=== PATIENT | female | born 1960 | race African-American/Black ===

== ENCOUNTER 2016-09-15 09:21 | Inpatient (IN) | payer MEDICAID ==
[~2016-09-15] VITALS: Ht 170.2 cm; Wt 122.5 kg
[~2016-09-15 09:21] MED LIST: AMLO10TA2 PO; ASPI-991 PO; DOXA1TAB17 PO; Hydralazine Hcl PO; Isosorbide Dinitrate PO; Valsartan PO
--- NOTE | 2016-09-15 09:30 | NUR ---
PT AMBULATED TO BED #6 WITH A SLOW STEADY GAIT. PT'S FAMILY IS WITH PT. PT CHANGED INTO A GOWN AND WAS PLACED ON THE MONITOR. DR. MAXWELL IS AT THE BEDSIDE. PT'S FAMILY IS TRANSLATING FOR DR. MAXWELL.
--- NOTE | 2016-09-15 09:30 | NUR ---
PT IS SWISS SPEAKING.
[2016-09-15] MEDS ORDERED: ASPIRIN 325 MG TABLET ONE (09:46)
--- NOTE | 2016-09-15 09:55 | NUR ---
CXR IN PROGRESS AT THE BEDSIDE.
[2016-09-15 09:59] LABS: BASOPHILS % (AUTO) 0.7 % (0.0-2.0); EOSINOPHILS # (AUTO) 0.1 /CMM (0.0-0.7); EOSINOPHILS % (AUTO) 1.5 % (0.0-6.0); HEMATOCRIT 40 % (33-45); HEMOGLOBIN 12.6 g/dL (11.5-14.8); LYMPHOCYTES # (AUTO) 2.3 /CMM (0.8-4.8); LYMPHOCYTES % (AUTO) 37.5 % (20.0-44.0); MEAN CORPUSCULAR HEMOGLOBIN 26 PG (26.0-33.0); MEAN CORPUSCULAR HGB CONC 32 g/dl (31.0-36.0); MEAN CORPUSCULAR VOLUME 80 fL (82-100); MONOCYTES # (AUTO) 0.3 /CMM (0.1-1.30); MONOCYTES % (AUTO) 4.9 % (2.0-12.0); NEUTROPHILS # (AUTO) 3.3 /CMM (1.8-8.9); NEUTROPHILS % (AUTO) 55.4 % (43.0-81.0); PLATELET COUNT (AUTO) 207 /CMM (150-450); RDW COEFFICIENT OF VARIATION 14.9 (11.5-15.0); RED BLOOD CELL COUNT(AUTO) 4.95 MIL/uL (4.0-5.2)
[2016-09-15] MEDS ORDERED: ASPIRIN 325 MG TABLET PO ONE (10:00)
[2016-09-15] MEDS ORDERED: LISI1TAB11 PO (10:10)
[2016-09-15] MEDS ORDERED: [UNRECOGNIZED DRUG - OTHER] PO (10:10)
[2016-09-15] MEDS ORDERED: HYDR25TA4 PO (10:10)
[2016-09-15] MEDS ORDERED: BISO5TAB2 PO (10:10)
[2016-09-15 10:11] LABS: CALCIUM, SERUM 9.4 mg/dL (8.5-10.1); CREATININE 1.1 mg/dL (0.6-1.3); POTASSIUM 2.9 mmol/L (3.5-5.1)
[2016-09-15 10:19] LABS: INR 1.01 (0.87-1.13); PROTHROMBIN TIME 10.6 SECS (9.5-12.7)
--- NOTE | 2016-09-15 10:20 | NUR ---
320 B 2
[2016-09-15 10:21] LABS: TROPONIN I 0.139 ng/mL (0.00-0.056)
[2016-09-15] MEDS ORDERED: POTASSIUM CHLORIDE 20 MEQ TAB.PRT.SR PO ONE ×2 (10:24→10:30)
[2016-09-15] MEDS ORDERED: NITROGLYCERIN PACKET 1 GM PACKET ONE (10:24)
--- NOTE | 2016-09-15 10:24 | NUR ---
PT APPEARS TO BE RESTING COMFORTABLY WITH NO S/S OF PAIN OR DISTRESS. VSS. PT REC'D 2 WARM BLANKETS.
--- NOTE | 2016-09-15 10:29 | NUR ---
PAGEReuben BRUCE FOR CARDIOOGY CONSULT
[2016-09-15] MEDS ORDERED: NITROGLYCERIN PACKET 1 GM PACKET TD ONE (10:30)
--- NOTE | 2016-09-15 10:30 | NUR ---
PAGED DR RUSH FOR ADMISSION
--- NOTE | 2016-09-15 10:32 | NUR ---
CALLING REPORT TO WILLEM GEORGES
[2016-09-15 12:00] VITALS: BP 137/77
[2016-09-15] MEDS ORDERED: ZOLPIDEM TARTRATE 5 MG TABLET PO PRN (12:00)
[2016-09-15] MEDS ORDERED: Z GUARD REMEDY 2 OZ OINT TP PRN (12:00)
[2016-09-15] MEDS ORDERED: MAGNESIUM HYDROXIDE 30 ML UDC PO PRN (12:00)
[2016-09-15] MEDS ORDERED: MAG HYDROX/AL HYDROX/SIMETH 30 ML UDC PO PRN (12:00)
[2016-09-15] MEDS ORDERED: ACETAMINOPHEN 325 MG TABLET PO PRN (12:00)
[2016-09-15] MEDS ORDERED: ONDANSETRON HCL/PF 4 MG/2 ML VIAL IVP PRN (12:00)
--- NOTE | 2016-09-15 12:10 | NUR ---
FISH BIN TENDER INITIAL NOTES PATIENT IN ROOM RECEIVED FROM ER. NO SOB OR DISTRESS NOTED AT THIS TIME. PATIENT DENIES PAIN. HEART RATE SR 65. PATIENT ORIENTED TO ROOM AND CALL LIGHT WITH THE HELP OF FAMILY FOR TRANSLATION. BED IN A LOW POSITION, CALL LIGHT WITHIN PATIENT REACH. WILL CONTINUE TO MONITOR.
[2016-09-15] MEDS: HYDROCODONE/APAP 5/325MG 1 EACH TABLET PO PRN ×2 (15:42→20:26)
[2016-09-15 16:00] VITALS: BP 134/76
[2016-09-15] MEDS ORDERED: NIFEdipine (10MG) 10 MG CAPSULE PO SCH (17:00)
[2016-09-15] MEDS: NIFEdipine (10MG) 10 MG CAPSULE PO SCH (17:06)
--- NOTE | 2016-09-15 19:20 | NUR ---
FITNESS PROFESSIONAL CLOSING NOTES NO SIGNIFICANT CHANGES IN PATIENT CONDITION THROUGHOUT THE SHIFT. NO SOB OR DISTRESS NOTED AT THIS TIME. PATIENT DENIES PAIN. HEART RATE SR 65 WITH OCCASIONAL PVC. BED IN A LOW POSITION, CALL LIGHT WITHIN PATIENT REACH, ENDORSED TO UROLOGIST PHYSICIAN RN FOR MARVA.
--- NOTE | 2016-09-15 19:40 | NUR ---
POLE SANDER OPERATOR INITIAL NOTES: RECEIVED REPORT FROM JOSÉ MANUEL BANGURA. PT ON BED, AWAKE, A/O X3 POLISH SPEAKING BUT ABLE TO UNDERSTAND LITTLE/BASIC WELSH. C/O HEADACHE 6/10, RESPIRATION EVEN AND UNLABORED, DENIES ANY CHEST PAIN. IV ACCESS PATENT AND FLUSHING WELL, ON HL. PT REFUSED SCD. EDUCATION PROVIDED TO THE PT. ON SINUS RHYTHM HR 65, SAFETY PRECAUTIONS FOR FALL INITIATED CALL LIGHT IN REACH., WILL CONTINUE TO MONITOR
[2016-09-15 20:00] VITALS: BP 143/68
--- NOTE | 2016-09-15 20:27 | NUR ---
COLOR PRINT INSPECTOR NOTES: PT C/O HEADACHE 12/26 REQUESTING FOR NORCO, PRN NORCO 5/325 MG TAB PO ADMINISTERED TO THE PT AT THIS TIME, EDUCATE PT REGARDING MEDICATION SIDE EFFECT, WILL CONTINUE TO MONITOR AND REASSESS
--- NOTE | 2016-09-15 21:58 | NUR ---
ROTATIONAL MOULDING OPERATOR NOTES: PT STILL C/O HEADACHE STATED ITS 08/28 REQUESTING FOR TYLENOL, PRN TYLENOL 650MG TAB PO ADMINISTERED TO THE PT AT [facility], WILL CONTINUE TO MONITOR AND REASSESS
[2016-09-15 22:00] VITALS: BP 143/68
[2016-09-16] VITALS: BP 120/75
--- NOTE | 2016-09-16 01:30 | NUR ---
PACKAGE DELIVERY DRIVER NOTES: SEEN PT SLEEPING AT THIS TIME, ON SINUS RHYTHM HR 66, NO FACIAL GRIMACE NOTED, WILL CONTINUE TO MONITOR
[2016-09-16 04:00] VITALS: BP 120/76
--- NOTE | 2016-09-16 06:48 | NUR ---
telescope maintenance closing notes: pt on bed, sleeping, no facial grimace noted, appears calm and comfortable, ot denies any chest pain throughout the shift. remains sinus rhythm hr 66. iv remains patent and flushing well, on hl. vs remains stable, needs attended, exit care completed, safety precautions for fall remains engaged, call light in reach, will endorse to day rn for nery.
[2016-09-16] MEDS ORDERED: PANTOPRAZOLE 40 MG TABLET.DR PO SCH (07:30)
[2016-09-16 07:53] LABS: BASOPHILS % (AUTO) 0.4 % (0.0-2.0); EOSINOPHILS # (AUTO) 0.1 /CMM (0.0-0.7); EOSINOPHILS % (AUTO) 2.2 % (0.0-6.0); HEMATOCRIT 38 % (33-45); HEMOGLOBIN 12.3 g/dL (11.5-14.8); LYMPHOCYTES # (AUTO) 2.1 /CMM (0.8-4.8); LYMPHOCYTES % (AUTO) 35.9 % (20.0-44.0); MEAN CORPUSCULAR HEMOGLOBIN 26 PG (26.0-33.0); MEAN CORPUSCULAR HGB CONC 33 g/dl (31.0-36.0); MEAN CORPUSCULAR VOLUME 80 fL (82-100); MONOCYTES # (AUTO) 0.4 /CMM (0.1-1.30); MONOCYTES % (AUTO) 6.4 % (2.0-12.0); NEUTROPHILS # (AUTO) 3.2 /CMM (1.8-8.9); NEUTROPHILS % (AUTO) 55.1 % (43.0-81.0); PLATELET COUNT (AUTO) 215 /CMM (150-450); RDW COEFFICIENT OF VARIATION 16.4 (11.5-15.0); RED BLOOD CELL COUNT(AUTO) 4.71 MIL/uL (4.0-5.2); WHITE BLOOD COUNT (AUTO) 5.7 K/uL (4.3-11.0)
[2016-09-16 08:02] LABS: CALCIUM, SERUM 9.9 mg/dL (8.5-10.1); CREATININE 0.9 mg/dL (0.6-1.3); MAGNESIUM 1.5 mg/dL (1.8-2.4); PHOSPHORUS 2.9 mg/dL (2.5-4.9); POTASSIUM 3.2 mmol/L (3.5-5.1)
[2016-09-16 08:05] VITALS: BP 117/63
[2016-09-16 08:08] VITALS: BP 117/65
[2016-09-16] MEDS ORDERED: POTASSIUM CHLORIDE 20 MEQ POWDER PACKET PO ONE (09:00)
[2016-09-16] MEDS ORDERED: BISOPROLOL FUMARATE 5 MG TABLET PO SCH (09:00)
[2016-09-16] MEDS ORDERED: HYDROCHLOROTHIAZIDE 25 MG TABLET PO SCH (09:00)
[2016-09-16] MEDS ORDERED: LISINOPRIL (20MG) 20 MG TABLET PO SCH (09:00)
[2016-09-16] MEDS ORDERED: IV SET PRIMARY PUMP SET 1 EA INFUS.SET MC ONE (09:28)
[2016-09-16] MEDS: Magnesium 1GM/D5W 100ML PREMIX 100 ML IV SCH ×4 (09:33→12:34)
[2016-09-16] MEDS: NIFEdipine (10MG) 10 MG CAPSULE PO SCH (10:36)
[2016-09-16 12:36] VITALS: BP 144/75
--- NOTE | 2016-09-16 14:38 | NUR ---
tele/rn: notes all discharge instruction gave to patient and her son Donn, verbalize understanding, all patient's belongings returned and signed by patient , IV h/l removed, no bleeding noted, wrist band removed, all discharge Rx education provided to patient and her son, verbalize understanding.patient down to the lobby via wheel chair with stable condition.
== END 2016-09-16 14:30 | disposition home or self-care (01) | DRG 190 ==
LOC: ER 09:23 → TELE 11:18
PROVIDERS: ADMIT Family Medicine; ATTEND Family Medicine
DX: I21.4 Non-ST elevation (NSTEMI) myocardial infarction (principal); E46 Unspecified protein-calorie malnutrition; M94.0 Chondrocostal junction syndrome [Tietze]; Z68.41 Body mass index [BMI] 40.0-44.9, adult; I16.0 Hypertensive urgency; E87.6 Hypokalemia; E66.9 Obesity, unspecified; I10 Essential (primary) hypertension
CPT/HCPCS: 36415; 71010-TC; 80048-TC; 83735-TC; 84100-TC; 84484-TC; 85025-TC; 85730-TC; 87081-TC; A4606; J3475; Z7610